=== PATIENT | female | born 1980 | race Caucasian/White ===

== ENCOUNTER 2018-04-13 19:51 | Day surgery (SDC) | payer BC ==
[2018-04-13 20:17] LABS: #Eosinphils 0.1 thou/uL (0.0-0.7); #Lymphocytes 1.1 thou/uL (1.20-3.40); #Monocytes 0.3 thou/uL (0.11-0.59); #Neutrophils 2.7 thou/uL (1.40-6.50); %Basophils 0.1 % (0.0-1.0); %Lymphocytes 27.2 % (21.0-51.0); %Monocytes 7.3 % (0.0-10.0); %Neutrophils 63.4 % (42.0-75.0); Hemoglobin 10.8 g/dL (12.0-16.0); Mean Corpuscular HGB CONC 33.7 g/dL (32.0-36.0); Mean Corpuscular Hemoglobin 28.3 pg (27.0-31.0); Mean Corpuscular Volume 84.1 fL (78.0-98.0); Mean Platelet Volume 7.5 fL (7.4-10.4); Platelet Count 178 thou/uL (130-400); RBC Distribution Width 11.3 % (11.5-14.5); White Blood Cell (WBC) Count 4.2 thou/uL (4.8-10.8)
[2018-04-13 23:11] LABS: #Eosinphils 0.1 thou/uL (0.0-0.7); #Lymphocytes 0.8 thou/uL (1.20-3.40); #Monocytes 0.3 thou/uL (0.11-0.59); #Neutrophils 4.3 thou/uL (1.40-6.50); %Basophils 0.4 % (0.0-1.0); %Eosinophils 1.4 % (0.0-10.0); %Lymphocytes 14.7 % (21.0-51.0); %Monocytes 4.6 % (0.0-10.0); Hemoglobin 9.6 g/dL (12.0-16.0); Mean Corpuscular HGB CONC 33.3 g/dL (32.0-36.0); Mean Corpuscular Hemoglobin 27.9 pg (27.0-31.0); Mean Corpuscular Volume 83.7 fL (78.0-98.0); Mean Platelet Volume 6.7 fL (7.4-10.4); Platelet Count 196 thou/uL (130-400); RBC Distribution Width 11.4 % (11.5-14.5); Red Blood Cell (RBC) Count 3.45 mill/uL (4.20-5.40); White Blood Cell (WBC) Count 5.4 thou/uL (4.8-10.8)
[2018-04-13] MEDS ORDERED: Ketorolac Tromethamine 30 MG/ML VIAL ONE (23:28)
[2018-04-13] MEDS ORDERED: Acetaminophen 500 MG TAB ONE (23:28)
[2018-04-14] MEDS ORDERED: Fentanyl 100 MCG/2 ML VIAL ONE (02:32)
[2018-04-14] MEDS ORDERED: Midazolam HCl 2 mg/2 ml Vial ONE (02:32)
[2018-04-14] MEDS ORDERED: Misoprostol 200 MCG TAB ONE (03:34)
--- NOTE | 2018-04-14 09:51 | ULT ---
PRELIMINARY REPORT/[facility]/EMERGENTY AFTER-HOURS PROCEDURE US Uterus, Limited CLINICAL HISTORY: 37 years old, female; Signs and symptoms; Lmp or gestational age (in weeks): 12w6d; Antepartum compli cations; Bleeding and other: Dx; demise on 12/13/17; ; Patient HX: Heavy vaginal bleedin g x 2 days. ; Additional info: HX: Previous miscarriages. /a6. HCG level 1484 TECHNIQUE: Real-time ultrasound of the maternal uterus (limited) with image documentation. COMPARISON: No relevant prior studies available. FINDINGS: No visible intra or extrauterine gestational sac. Endometrial thickness is about 13 mm. There is some complex tissue/fluid in the lower uterine segment/cervix, measuring up to 16 mm in diam eter. Some of this appearance is likely secondary to blood/clot in the endometrial canal. Color Doppler imaging does not show definite increased blood flow within this area, therefore no defi nitive evidence for actual retained products of conception at this time. That diagnosis is not exclud ed, therefore appropriate followup warranted as clinically directed. No free pelvic fluid. Very small cyst in the left ovary, measuring 13 x 9 x 9 mm. Maternal ovaries/adnexa otherwise appear essentially unremarkable. Blood flow detected in each ovary. The sonographic appearance from this single exam is nonspecific. The differential diagnosis from the images alone includes; an early viable intrauterine les s than four to five weeks gestation; a miscarriage; as well as an occult ectopic . Appropriate clinical follow up, including HCG level follow-up is recommended. The urinary bladder was not completely evaluated/imaged at this time. IMPRESSION: No visible intra or extrauterine gestational sac. See above discussion and recommendations. Some complex tissue/fluid in the lower uterine segment/cervix, see above discussion. Other details discussed above. Thank you for allowing us to participate in the care of your patient. Dictated and Authenticated by: Ever Graham MD 04/14/2018 1:08 AM Central Time ([place] & [place]) FINAL REPORT PELVIC ULTRASOUND: Date: 04/14/18 HISTORY: Heavy vaginal bleeding x2 days. History of previous miscarriage. COMPARISON: None. FINDINGS/IMPRESSION: This report is in agreement with the preliminary report by [facility]. There is complex echotexture in the lower uterine segment measuring 16 mm in diameter on the sagittal images and 39 mm on the transverse images. Findings may represent blood clot versus retained products of conception. 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 There is no sonographic evidence of a gestational sac . Follow-up ultrasound and serial beta HCGs are recommended. There appears to be a complex cyst assoc iated with the left ovary. POS: [facility]
[2018-04-14] MEDS ORDERED: PROPOFOL 200 MG/20 ML VIAL ONE (11:51)
[2018-04-14] MEDS ORDERED: Succinylcholine Chloride 20 MG/ML 10 ml SYRINGE FS ONE (11:51)
[2018-04-14] MEDS ORDERED: Lidocaine 1% PF 5 ML VIAL ONE (11:51)
[2018-04-14] MEDS ORDERED: PHENYLEPHRINE-NS 100 MCG/ML 10 ML SYRINGE ONE (11:51)
[2018-04-14] MEDS ORDERED: ePHEDrine/0.9% NaCl/PF SYRINGE 50 mg/10 ml ONE (11:51)
[2018-04-14] MEDS ORDERED: Ondansetron HCl/PF 4 MG/2 ML Vial ONE (11:51)
[2018-04-14] MEDS ORDERED: Dexamethasone 20 MG/5 ML VIAL ONE (11:51)
--- NOTE | 2018-04-14 12:57 | OP ---
DATE OF PROCEDURE: 04/14/2018 PREOPERATIVE DIAGNOSES: 1. Intrauterine by LMP at 12 weeks. 2. Incomplete . 3. Vaginal bleeding. POSTOPERATIVE DIAGNOSES: 1. Intrauterine by LMP at 12 weeks. 2. Incomplete . 3. Vaginal bleeding. PROCEDURE: Suction D&C. COMPLICATIONS: None. CONDITION: Stable. COUNTS: Correct. SPECIMENS REMOVED: Products of conception or uterine contents to pathology. ANESTHESIA: General. ESTIMATED BLOOD LOSS: 150 mL. DESCRIPTION OF PROCEDURE: Ms. Carley Marques was taken to the operating room for D&C due to incompl ete after being counseled to her options of medical versus surgical management. The patient had opted for surgical management, expressed understanding to the risks and benefits discussed. She was placed under general anesthesia and placed in dorsal lithotomy position in [facility]. She was prepared and draped in normal sterile fashion and attention was placed vaginally where with an operative speculum, the cervix was identified and grasped with a single tooth tenaculum. The cerv ix was already dilated from this process and a 10 [place] curette. Uterine sound was then used to pipo nd the uterus to about 11 cm 10-Kenyan curved curette was then used and suction was confirmed t o be between 35 and 40. The suction curette was then introduced into the uterine cavity and gently a dvanced to the fundus of the uterus and with 2 passes, the uterine contents were removed. Sharp cure tte was used to confirm uterine cry in all 4 quadrants. The patient had some brisk bleeding initiall y after the suction and that was resolved with vigorous bimanual massage and 800 mcg of Cytotec recta lly. Once this was under control, re-evaluation of the cervix revealed good hemostasis at the site o f the tenaculum, which had been removed and there was no active bleeding visible from the os. At thi s point, the procedure was completed. The patient was taken out of lithotomy position and taken to r ecovery in stable condition.
== END 2018-04-14 05:01 | disposition home or self-care (01) ==
LOC: ERS 19:51 → SDC 04-14 03:01 → ERS 04-14 05:01 → SDC 04-14 05:01 → ERS 04-14 05:10
PROVIDERS: ATTEND Obstetrics & Gynecology
PROC: 10D17ZZ Extraction of Products of Conception, Retained, Via Natural or Artificial Opening (ICD-10-PCS; principal; 2018-04-14)
DX: O03.1 Delayed or excessive hemorrhage following incomplete spontaneous abortion (principal)
CPT/HCPCS: 36415; 76856; 84702; 85014; 85018; 85025; 86850; 86900; 86901; 88305; 93976; 96360; 96361; 96374; J1100; J1885; J2001; J2250; J2405; J2704; J3010